=== PATIENT | female | born 1955 | race Two or more races ===

== ENCOUNTER 2022-02-07 13:32 | Emergency (ER) | payer OTHER ==
[~2022-02-07] VITALS: Ht 149.9 cm; Wt 74.8 kg
[~2022-02-07 13:32] MED LIST: AQUASOL E15 IU/0.3; BIOTIN1 MG; CATAFLAM50 MG PO; NABUMETONE750 MG PO; NORFLEX100 MG; PAXIL20 MG; TORADOL10 MG; TRAM1TAB98 PO; VITAMIN C100 MG; ZYRTEC10 MG PO
== END 2022-02-07 17:30 | disposition home or self-care (01) ==
LOC: ER 13:32
DX: M54.50 Low back pain, unspecified (principal); M25.561 Pain in right knee; M25.562 Pain in left knee

== ENCOUNTER 2024-03-03 08:19 | Emergency (ER) | payer OTHER ==
[~2024-03-03] VITALS: Ht 152.4 cm; Wt 72.6 kg
[2024-03-03 08:44] VITALS: BP 135/72; O2SAT 97
[2024-03-03] MEDS ORDERED: PLAVIX75 MG (08:47)
[2024-03-03] MEDS ORDERED: TOPROL XL25 M1 (08:47)
[2024-03-03] MEDS ORDERED: ADULT LOW DOSE81 M1 (08:47)
[2024-03-03] MEDS ORDERED: ROSUVASTATIN CA20 MG PO (08:48)
[2024-03-03] MEDS ORDERED: DUTASTERIDE-TA1 EACH (08:48)
[2024-03-03] MEDS ORDERED: 0.9 % SODIUM CHLORIDE 1,000 ML IV SCH (09:16)
[2024-03-03] MEDS ORDERED: ONDANSETRON HCL 2 MG/ML VIAL IV STA (09:16)
[2024-03-03 10:02] LABS: HEMATOCRIT 42.7 % (36.0-45.00); HEMOGLOBIN 14.2 g/dL (12.0-15.00); MEAN CORPUSCULAR HEMOGLOBIN 29.3 pg (27.00-32.0); MEAN CORPUSCULAR HGB CONC 33.3 g/dl (32.0-36.0); PLATELET COUNT 179 K/uL (150-450); RED BLOOD COUNT 4.85 M/uL (4.00-6.00); RED CELL DISTRIBUTION WIDTH 13.5 % (11.5-14.5)
[2024-03-03 10:20] LABS: CALCIUM 8.9 mg/dL (8.5-10.1); CREATININE SERUM 1.05 mg/dL (0.55-1.02); GFR 52.27; POTASSIUM 4.43 mEq/L (3.5-5.1)
[2024-03-03 13:21] LABS: URINE APPEARANCE Cloudy; URINE BILIRRUBIN Negative (NEGATIVE); URINE BLOOD Negative; URINE COLOR Yellow; URINE GLUCOSE Negative (NEGATIVE); URINE KETONE Negative (NEGATIVE); URINE LEUKOCYTE Large; URINE NITRATE Negative; URINE PROTEIN Negative (NEGATIVE); URINE UROBILINOGEN 0.2 E.U./dl
[2024-03-03 13:26] LABS: URINE BACTERIA 6378.1 uL (0.0-1933); URINE EPITHELIAL CELLS 108.9 uL (0.0-38.8); URINE RBC 7.2 uL (0.0-20.8); URINE WBC 1044.2 uL (0.0-23.2)
[2024-03-03 13:34] LABS: URINE CAST 0.73 uL (0.0-1.40)
[2024-03-03] MEDS ORDERED: METRONIDAZOLE/SODIUM CHLORIDE 500 MG/100 ML PIGGYBACK IV ONE (15:30)
[2024-03-03] MEDS ORDERED: CIPROFLOXACIN IN 5 % DEXTROSE 400 MG/200 ML PIGGYBAG IV ONE (15:30)
== END 2024-03-03 15:56 | disposition home or self-care (01) ==
LOC: ER 08:19
PROVIDERS: Emergency Medicine
DX: K52.9 Noninfective gastroenteritis and colitis, unspecified (principal); I10 Essential (primary) hypertension
CPT/HCPCS: 36415; 96365; 96366; 99282; J0744; J2405; J3490; J7030

== ENCOUNTER 2024-04-05 14:25 | Emergency (ER) | payer OTHER ==
[~2024-04-05] VITALS: Ht 149.9 cm; Wt 72.6 kg
[~2024-04-05 14:25] MED LIST changes: +ADULT LOW DOSE81 M1; +DUTASTERIDE-TA1 EACH; +PLAVIX75 MG; +ROSUVASTATIN CA20 MG PO; +TOPROL XL25 M1
[2024-04-05] MEDS ORDERED: ONDANSETRON HCL 2 MG/ML VIAL IV STA (16:18)
[2024-04-05] MEDS ORDERED: 0.9 % SODIUM CHLORIDE 1,000 ML IV STA (16:18)
[2024-04-05] MEDS ORDERED: FAMOTIDINE/PF 20 MG in 0.9 % SODIUM CHLORIDE 8 ML IV PUSH STA (16:18)
[2024-04-05] MEDS ORDERED: ONDANSETRON HCL 2 MG/ML VIAL ONE (16:28)
[2024-04-05] MEDS ORDERED: FAMOTIDINE/PF 20 MG/2 ML VIAL ONE (16:28)
[2024-04-05 16:56] LABS: HEMATOCRIT 41.5 % (36.0-45.00); MEAN CELL VOLUME 87.5 fL (80.00-100.00); MEAN CORPUSCULAR HEMOGLOBIN 29.4 pg (27.00-32.0); MEAN CORPUSCULAR HGB CONC 33.7 g/dl (32.0-36.0); PLATELET COUNT 180 K/uL (150-450); RED BLOOD COUNT 4.75 M/uL (4.00-6.00); RED CELL DISTRIBUTION WIDTH 13.6 % (11.5-14.5)
[2024-04-05 17:16] LABS: CALCIUM 9.5 mg/dL (8.5-10.1); CREATININE SERUM 0.95 mg/dL (0.55-1.02); GFR 58.67; POTASSIUM 4.47 mEq/L (3.5-5.1)
[2024-04-05 19:22] LABS: URINE APPEARANCE Cloudy; URINE BILIRRUBIN Negative (NEGATIVE); URINE BLOOD NHT; URINE COLOR Yellow; URINE GLUCOSE Negative (NEGATIVE); URINE KETONE 15 (NEGATIVE); URINE LEUKOCYTE Large; URINE NITRATE Negative; URINE PROTEIN Negative (NEGATIVE); URINE UROBILINOGEN 0.2 E.U./dl
[2024-04-05 19:27] LABS: URINE BACTERIA 1684.1 uL (0.0-1933); URINE EPITHELIAL CELLS 69.5 uL (0.0-38.8); URINE RBC 10.1 uL (0.0-20.8)
[2024-04-05 19:43] LABS: URINE CAST 0.88 uL (0.0-1.40)
[2024-04-05] MEDS ORDERED: CIPROFLOXACIN IN 5 % DEXTROSE 400 MG/200 ML PIGGYBAG IV ONE ×2 (21:43→21:45)
[2024-04-05] MEDS ORDERED: KETOROLAC TROMETHAMINE 30 MG VIAL ONE (21:43)
[2024-04-05] MEDS ORDERED: METRONIDAZOLE/SODIUM CHLORIDE 500 MG/100 ML PIGGYBACK IV ONE ×2 (21:43→21:45)
[2024-04-05] MEDS ORDERED: KETOROLAC TROMETHAMINE 30 MG VIAL IV ONE (21:45)
[2024-04-06] MEDS ORDERED: ZOFRAN8 MG PO (03:30)
[2024-04-06] MEDS ORDERED: CIPRO500 MG PO (03:30)
[2024-04-06] MEDS ORDERED: FAMOTIDINE40 MG PO (03:30)
[2024-04-06] MEDS ORDERED: INTESTINEX680 M2 PO (03:30)
== END 2024-04-06 04:13 ==
LOC: ER 14:27
PROVIDERS: Emergency Medicine
DX: K52.9 Noninfective gastroenteritis and colitis, unspecified (principal); R11.10 Vomiting, unspecified

== ENCOUNTER 2024-06-29 22:43 | Emergency (ER) | payer OTHER ==
[~2024-06-29] VITALS: Ht 149.9 cm; Wt 72.6 kg
[~2024-06-29 22:43] MED LIST changes: +CIPRO500 MG PO; +FAMOTIDINE40 MG PO; +INTESTINEX680 M2 PO; +ZOFRAN8 MG PO
[2024-06-29 23:10] VITALS: BP 127/79; O2SAT 98
[2024-06-30] MEDS ORDERED: ORPHENADRINE CITRATE 30 MG/ML AMPUL IM STA (02:02)
[2024-06-30] MEDS ORDERED: TRIAMCINOLONE ACETONIDE 40 MG/ML VIAL IM STA (02:04)
[2024-06-30] MEDS ORDERED: ACETAMINOPHEN 500 MG GEL..CAP PO STA (02:04)
[2024-06-30] MEDS ORDERED: ACETAMINOPHEN 500 MG GEL..CAP PO ONE (02:10)
[2024-06-30] MEDS ORDERED: ORPHENADRINE CITRATE 30 MG/ML AMPUL ONE (02:10)
[2024-06-30] MEDS ORDERED: TRIAMCINOLONE ACETONIDE 40 MG/ML VIAL ONE (02:10)
[2024-06-30] MEDS ORDERED: DOLOGESIC-DF 51 EACH PO (02:56)
== END 2024-06-30 03:06 ==
LOC: ER 22:43
DX: M75.52 Bursitis of left shoulder (principal); I10 Essential (primary) hypertension